=== PATIENT | male | born 1960 | race Hispanic/Latino ===

== ENCOUNTER 2022-12-23 06:01 | Day surgery (SDC) | payer OTHER ==
[2022-12-21 12:22] LABS: BASOPHILS % (AUTO) 0.9 % (0.0-5.0); EOSINOPHILS % (AUTO) 2.9 % (0.0-8.0); HEMATOCRIT 34.2 % (42-54); LYMPHOCYTES % (AUTO) 19.8 % (21.0-51.0); MEAN CORPUSCULAR HEMOGLOBIN 29.2 pg (27.0-33.0); MEAN CORPUSCULAR VOLUME 94.2 fL (79-99); MONOCYTES % (AUTO) 12.5 % (3.0-13.0); NEUTROPHILS % (AUTO) 63.3 % (40.0-77.0); PLATELET COUNT (AUTO) 243 K/uL (130-400); RED BLOOD CELL COUNT(AUTO) 3.63 MIL/uL (4.50-6.20); RED CELL DISTRIBUTION WIDTH 14.7 % (11.0-15.5); WHITE BLOOD COUNT (AUTO) 6.6 K/uL (4.8-10.8)
[2022-12-21 12:31] LABS: CREATININE 7.8 mg/dL (0.5-1.5); POTASSIUM 4.4 mmol/L (3.5-5.1)
[2022-12-21 12:33] LABS: INR 1.03 (0.85-1.15); PROTHROMBIN TIME 11.2 SEC (9.6-11.6)
[2022-12-21 12:35] LABS: PARTIAL THROMBOPLASTIN TIME 30.8 SEC (26.3-35.5)
[2022-12-21 14:00] VITALS: BP 139/56
[~2022-12-23] VITALS: Ht 157.5 cm; Wt 88.5 kg
[2022-12-23] VITALS (9 sets, daily range): BP systolic 105–152; BP diastolic 50–60
[~2022-12-23 06:01] MED LIST: ESCI5TAB16 PO; LINA5TAB PO; NIFE-39 PO; SIMV10TA97 PO; SUCR500T PO; VEGGIE VITAMIN PO; [UNRECOGNIZED DRUG - OTHER] PO
[2022-12-23] MEDS ORDERED: 0.9%NACL 1000ML 1,000 ML IV ONE (06:29)
[2022-12-23] MEDS ORDERED: LIDOCAINE HCL 1% MDV 50ML VIAL ONE (07:09)
[2022-12-23] MEDS ORDERED: CEFAZOLIN SODIUM 1 GM VIAL ONE (07:09)
[2022-12-23] MEDS ORDERED: MEPERIDINE-PF 25 MG/ML SYG ONE ×2 (07:10→07:42)
[2022-12-23] MEDS ORDERED: MIDAZOLAM HCL 1 MG/ML 2ML VIAL ONE ×2 (07:10→07:42)
[2022-12-23] MEDS ORDERED: BUPIVACAINE/PF 0.5% 30ML VIAL ONE (07:34)
[2022-12-23] MEDS ORDERED: IOHEXOL-350 50ML VIAL IV ONE (08:10)
[2022-12-23] MEDS ORDERED: PIND5 PO (09:27)
[2022-12-23] MEDS ORDERED: TRAM50TA4 PO (09:27)
[2022-12-23] MEDS ORDERED: ACETAMINOPHEN WITH CODEINE 1 TAB TAB PO PRN (09:30)
[2022-12-23] MEDS ORDERED: ACETAMINOPHEN 500 MG TABLET PO PRN (09:30)
== END 2022-12-23 13:00 | disposition home or self-care (01) ==
LOC: DAH 06:01
PROVIDERS: ATTEND Internal Medicine Cardiovascular Disease
DX: I44.1 Atrioventricular block, second degree (principal); I44.2 Atrioventricular block, complete; R00.1 Bradycardia, unspecified; E78.5 Hyperlipidemia, unspecified; E11.22 Type 2 diabetes mellitus with diabetic chronic kidney disease; I12.0 Hypertensive chronic kidney disease with stage 5 chronic kidney disease or end stage renal disease; N18.6 End stage renal disease; I95.1 Orthostatic hypotension; Z79.01 Long term (current) use of anticoagulants; Z79.899 Other long term (current) drug therapy; Z99.2 Dependence on renal dialysis
CPT/HCPCS: 80048; 85025; 85610; 85730; 36415; 93005; 33208; 82948 ×2; 71045; C1769; C1785; C1898 ×2; J0690; J7030; J2250 ×2; J3490 ×2; J2175 ×2; Q9967; A4215; A4222; A4221; A4216; A5200; A4606; A4223 ×3; 99156; 99157